=== PATIENT | female | born 1940 | race Caucasian/White ===

== ENCOUNTER 2022-04-29 14:06 | Emergency (ER) | payer MEDICARE, OTHER ==
[2022-04-29] MEDS ORDERED: Sodium Chloride 0.9% 10 ML Syringe FLUSH PRN (16:03)
[2022-04-29] MEDS ORDERED: Sodium Chloride 0.9% 1,000 ML IV SCH (16:15)
[2022-04-29 16:36] LABS: ESTIMATED GFR 48 (>60)
[2022-04-29] MEDS ORDERED: Ciprofloxacin 500 MG Tab PO ONE (17:33)
== END 2022-04-29 18:34 | disposition swing bed (61) ==
LOC: JP.ED 14:06
DX: N39.0 Urinary tract infection, site not specified (principal); E86.0 Dehydration; E78.00 Pure hypercholesterolemia, unspecified; K21.9 Gastro-esophageal reflux disease without esophagitis; I10 Essential (primary) hypertension; Z79.899 Other long term (current) drug therapy; Z79.01 Long term (current) use of anticoagulants
CPT/HCPCS: 36415; 70450; 80053; 81001; 85025; 87086; 96360; 96361; 99285; A9270; J7030

== ENCOUNTER 2022-05-01 09:48 | Inpatient (IN) | payer MEDICARE, OTHER ==
[2022-05-01] MEDS ORDERED: cefTRIAXone 1 GM in Sodium Chloride 0.9% 50 ML IV ONE (10:40)
[2022-05-01] MEDS ORDERED: Lactated Ringers 1,000 ML IV SCH (10:45)
[2022-05-01 11:31] LABS: ESTIMATED GFR 43 (>60)
[2022-05-01] MEDS ORDERED: Ondansetron 4 MG/2 ML SDV IV PRN (13:57)
[2022-05-01] MEDS ORDERED: LORazepam 2 MG/ML SDV IVPUSH PRN (13:57)
[2022-05-01] MEDS ORDERED: hydrALAZINE 20 MG/ML SDV IVPUSH PRN (14:10)
[2022-05-01] MEDS ORDERED: WARFARIN 4 MG PO SCH (14:15)
[2022-05-01] MEDS ORDERED: Sodium Chloride 0.9% 10 ML Syringe IV PRN (14:18)
[2022-05-01 15:28] LABS: CORONAVIRUS COVID-19 NAA NEGATIVE (NEGATIVE)
[2022-05-01] MEDS: DULOXETINE 30 MG PO SCH (16:45)
[2022-05-01] MEDS: amLODIPine 5 MG Tab (PTOM) PO SCH (16:45)
[2022-05-01] MEDS: Enoxaparin 40 MG/0.4 ML Syringe SUBCUT SCH (16:46)
[2022-05-01] MEDS: Potassium Chloride 20 MEQ Tab.ER PO SCH ×2 (16:50→20:26)
[2022-05-01] MEDS: ATORVASTATIN 40MG TAB (PTOM) PO SCH (20:23)
[2022-05-01] MEDS: DULOXETINE 60 MG PO SCH (20:24)
[2022-05-01] MEDS: BUPROPION 150 MG PO SCH (20:25)
[2022-05-01] MEDS ORDERED: Non-Formulary Medication 1 Each (Atorvastatin [Lipitor] 40 MG Tablet) PO SCH (21:00)
[2022-05-01] MEDS: LORazepam 2 MG/ML SDV IVPUSH PRN (22:35)
[2022-05-02 05:23] LABS: ESTIMATED GFR 53 (>60)
[2022-05-02] MEDS ORDERED: Pneumococcal Polyvalent-23 Vaccine 0.5 ML SDV IM ONE (09:00)
[2022-05-02] MEDS ORDERED: Non-Formulary Medication 1 Each (Esomeprazole [Nexium] 40 MG Cap) PO SCH (09:00)
[2022-05-02] MEDS: amLODIPine 5 MG Tab (PTOM) PO SCH (09:03)
[2022-05-02] MEDS: Potassium Chloride 20 MEQ Tab.ER PO SCH ×2 (09:04→20:18)
[2022-05-02] MEDS: BUPROPION 150 MG PO SCH ×2 (09:04→20:20)
[2022-05-02] MEDS: ESOMEPRAZOLE 40 MG PO SCH (09:04)
[2022-05-02] MEDS: DULOXETINE 30 MG PO SCH (09:04)
[2022-05-02] MEDS: cefTRIAXone 1 GM in Sodium Chloride 0.9% 50 ML IV SCH (12:44)
[2022-05-02] MEDS: WARFARIN 4 MG PO SCH ×3 (12:49→20:19)
[2022-05-02] MEDS ORDERED: Gadoteridol 279.3 MG/ML 15 ML SDV IV SCH (13:00)
[2022-05-02] MEDS: Enoxaparin 40 MG/0.4 ML Syringe SUBCUT SCH (14:06)
[2022-05-02] MEDS ORDERED: Sodium Chloride 0.9% 1,000 ML IV SCH (14:30)
[2022-05-02] MEDS: Acetaminophen 325 MG Tab PO PRN (17:45)
[2022-05-02] MEDS: LORazepam 2 MG/ML SDV IVPUSH PRN ×2 (18:25→22:31)
[2022-05-02] MEDS: ATORVASTATIN 40MG TAB (PTOM) PO SCH (20:18)
[2022-05-02] MEDS: DULOXETINE 60 MG PO SCH (20:19)
[2022-05-02] MEDS: Magnesium Hydroxide 400 MG/5 ML Susp 30 ML Cup PO PRN (20:27)
[2022-05-02] MEDS ORDERED: WARFARIN 4 MG PO SCH (21:00)
[2022-05-03] MEDS ORDERED: Sodium Chloride 0.9% 1,000 ML IV SCH (08:15)
[2022-05-03] MEDS: Potassium Chloride 20 MEQ Tab.ER PO SCH ×2 (08:49→20:04)
[2022-05-03] MEDS: ESOMEPRAZOLE 40 MG PO SCH (08:50)
[2022-05-03] MEDS: DULOXETINE 30 MG PO SCH (08:50)
[2022-05-03] MEDS: BUPROPION 150 MG PO SCH ×2 (08:51→20:07)
[2022-05-03] MEDS: amLODIPine 5 MG Tab (PTOM) PO SCH (08:52)
[2022-05-03] MEDS: cefTRIAXone 1 GM in Sodium Chloride 0.9% 50 ML IV SCH (11:34)
[2022-05-03] MEDS: LORazepam 2 MG/ML SDV IVPUSH PRN ×2 (14:01→22:33)
[2022-05-03] MEDS: ClonazePAM 0.5 MG Tab PO SCH ×4 (14:40→23:54)
[2022-05-03] MEDS ORDERED: Enoxaparin 30 MG/0.3 ML Syringe SUBCUT SCH (15:00)
[2022-05-03] MEDS ORDERED: Tamsulosin 0.4 MG Cap.ER PO ONE (16:00)
[2022-05-03] MEDS: Acetaminophen 325 MG Tab PO PRN (18:11)
[2022-05-03] MEDS: DULOXETINE 60 MG PO SCH (20:04)
[2022-05-03] MEDS: Melatonin 3 MG Tab PO SCH (20:04)
[2022-05-03] MEDS: WARFARIN 4 MG PO SCH (20:06)
[2022-05-03] MEDS: ATORVASTATIN 40MG TAB (PTOM) PO SCH (20:08)
[2022-05-03] MEDS: Sodium Chloride 0.9% 1,000 ML IV SCH (20:10)
[2022-05-04] MEDS: Sodium Chloride 0.9% 1,000 ML IV SCH (02:55)
[2022-05-04] MEDS: ESOMEPRAZOLE 40 MG PO SCH (08:33)
[2022-05-04] MEDS: DULOXETINE 30 MG PO SCH (08:33)
[2022-05-04] MEDS: BUPROPION 150 MG PO SCH (08:34)
[2022-05-04] MEDS: Potassium Chloride 20 MEQ Tab.ER PO SCH ×2 (08:34→20:40)
[2022-05-04] MEDS: amLODIPine 5 MG Tab (PTOM) PO SCH (08:35)
[2022-05-04] MEDS: Tamsulosin 0.4 MG Cap.ER PO SCH (08:39)
[2022-05-04] MEDS: Magnesium Hydroxide 400 MG/5 ML Susp 30 ML Cup PO PRN (08:54)
[2022-05-04] MEDS: cefTRIAXone 1 GM in Sodium Chloride 0.9% 50 ML IV SCH (11:08)
[2022-05-04] MEDS ORDERED: Sodium Chloride 0.9% 1,000 ML IV SCH (12:00)
[2022-05-04] MEDS: Warfarin 2.5 MG Tab PO SCH (13:41)
[2022-05-04] MEDS: LORazepam 2 MG/ML SDV IVPUSH PRN ×2 (14:35→20:47)
[2022-05-04] MEDS: atorvaSTATin 20 MG Tab PO SCH (20:40)
[2022-05-04] MEDS: Melatonin 3 MG Tab PO SCH (20:40)
[2022-05-04] MEDS: buPROPion 150 MG Tab.ER PO SCH (20:40)
[2022-05-04] MEDS: DULoxetine 30 MG Cap PO SCH (20:41)
[2022-05-05] MEDS: LORazepam 2 MG/ML SDV IVPUSH PRN (01:04)
[2022-05-05] MEDS: ESOMEPRAZOLE 40 MG PO SCH (08:47)
[2022-05-05] MEDS ORDERED: Bisacodyl 5 MG Tab PO ONE (09:02)
[2022-05-05] MEDS: buPROPion 150 MG Tab.ER PO SCH ×2 (10:44→20:29)
[2022-05-05] MEDS: amLODIPine 5 MG Tab PO SCH (10:44)
[2022-05-05] MEDS: Potassium Chloride 20 MEQ Tab.ER PO SCH ×2 (10:44→20:29)
[2022-05-05] MEDS: DULoxetine 30 MG Cap PO SCH ×2 (10:45→20:30)
[2022-05-05] MEDS: Tamsulosin 0.4 MG Cap.ER PO SCH (10:45)
[2022-05-05] MEDS: Magnesium Hydroxide 400 MG/5 ML Susp 30 ML Cup PO PRN (10:47)
[2022-05-05] MEDS: cefTRIAXone 1 GM in Sodium Chloride 0.9% 50 ML IV SCH (11:39)
[2022-05-05] MEDS ORDERED: Bisacodyl 10 MG Supp RECTAL ONE (12:00)
[2022-05-05] MEDS: LORazepam 0.5 MG Tab PO PRN ×3 (12:57→22:24)
[2022-05-05] MEDS: Acetaminophen 325 MG Tab PO PRN (12:58)
[2022-05-05] MEDS: Warfarin 2.5 MG Tab PO SCH (13:24)
[2022-05-05] MEDS: atorvaSTATin 20 MG Tab PO SCH (20:29)
[2022-05-05] MEDS: Melatonin 3 MG Tab PO SCH (20:30)
[2022-05-06] MEDS: ESOMEPRAZOLE 40 MG PO SCH (08:43)
[2022-05-06] MEDS ORDERED: Amoxicillin/Clavulanate K 875-125 MG Tab PO SCH (09:00)
[2022-05-06] MEDS: buPROPion 150 MG Tab.ER PO SCH (09:37)
[2022-05-06] MEDS: Tamsulosin 0.4 MG Cap.ER PO SCH (09:37)
[2022-05-06] MEDS: Potassium Chloride 20 MEQ Tab.ER PO SCH (09:37)
[2022-05-06] MEDS: amLODIPine 5 MG Tab PO SCH (09:37)
[2022-05-06] MEDS: DULoxetine 30 MG Cap PO SCH (09:37)
[2022-05-06] MEDS: Acetaminophen 325 MG Tab PO PRN (12:32)
[2022-05-06] MEDS: Warfarin 2.5 MG Tab PO SCH (12:32)
== END 2022-05-06 13:00 | DRG 690 ==
LOC: JP.ED 09:48 → JP.MS 13:25 → OBSVTOIN 15:17
PROVIDERS: ADMIT Hospitalist; ATTEND Internal Medicine
DX: N13.6 Pyonephrosis (principal); N18.30 Chronic kidney disease, stage 3 unspecified; N18.31 Chronic kidney disease, stage 3a; I35.0 Nonrheumatic aortic (valve) stenosis; R53.1 Weakness; E78.00 Pure hypercholesterolemia, unspecified; K21.9 Gastro-esophageal reflux disease without esophagitis; E78.5 Hyperlipidemia, unspecified; G62.9 Polyneuropathy, unspecified; F32.A Depression, unspecified; Z79.01 Long term (current) use of anticoagulants; Z20.822 Contact with and (suspected) exposure to COVID-19; Z79.899 Other long term (current) drug therapy; Z90.710 Acquired absence of both cervix and uterus; Z86.19 Personal history of other infectious and parasitic diseases; F03.90 Unspecified dementia, unspecified severity, without behavioral disturbance, psychotic disturbance, mood disturbance, and anxiety; N30.00 Acute cystitis without hematuria; I12.9 Hypertensive chronic kidney disease with stage 1 through stage 4 chronic kidney disease, or unspecified chronic kidney disease; R79.1 Abnormal coagulation profile; R10.32 Left lower quadrant pain; Z86.718 Personal history of other venous thrombosis and embolism
CPT/HCPCS: 0241U; 36415; 70450; 70553; 74176; 80048; 80053; 81001; 83605; 84145; 84443; 85025; 85027; 85610; 86140; 87040; 96361; 96365; 97110; 97140; 97162; 97165; 97530; 97535; 99283; 99285; A9270-GY; A9579; C8929; J0696; J1650; J2060; J2405; J7030; J7120; U0002

== ENCOUNTER 2022-05-07 15:05 | Emergency (ER) | payer MEDICARE, OTHER ==
[2022-05-07] MEDS ORDERED: Sodium Chloride 0.9% 10 ML Syringe FLUSH PRN (15:39)
[2022-05-07] MEDS ORDERED: Lactated Ringers 1,000 ML IV SCH (15:45)
[2022-05-07 16:22] LABS: ESTIMATED GFR 51 mL/min (>60)
== END 2022-05-07 18:10 ==
LOC: JP.ED 15:05
DX: N13.1 Hydronephrosis with ureteral stricture, not elsewhere classified (principal); N20.1 Calculus of ureter; E78.00 Pure hypercholesterolemia, unspecified; I10 Essential (primary) hypertension; K21.9 Gastro-esophageal reflux disease without esophagitis; Z79.899 Other long term (current) drug therapy
CPT/HCPCS: 36415; 74176; 80053; 81001; 83605; 83690; 85025; 85610; 96360; 99282; 99285; J3490; J7120

== ENCOUNTER 2022-05-31 08:22 | Emergency (ER) | payer MEDICARE, OTHER ==
[2022-05-31 09:38] LABS: ESTIMATED GFR 51 mL/min (>60)
[2022-05-31] MEDS ORDERED: Aluminum Hydroxide/Magnesium Hydroxide/Simethicone Susp 30 ML Cup PO ONE (09:57)
== END 2022-05-31 10:44 | disposition home or self-care (01) ==
LOC: JP.ED 08:22
DX: R41.82 Altered mental status, unspecified (principal); R12 Heartburn; I10 Essential (primary) hypertension; E78.00 Pure hypercholesterolemia, unspecified; K21.9 Gastro-esophageal reflux disease without esophagitis; Z79.899 Other long term (current) drug therapy
CPT/HCPCS: 36415; 74176; 80053; 81001; 85025; 85610; 99285; A9270

== ENCOUNTER 2022-06-24 06:02 | Emergency (ER) | payer MEDICARE, OTHER ==
[2022-06-24] MEDS ORDERED: Sodium Chloride 0.9% 10 ML Syringe FLUSH PRN (06:04)
[2022-06-24 06:34] LABS: ESTIMATED GFR 42 mL/min (>60)
== END 2022-06-24 08:05 | disposition home or self-care (01) ==
LOC: JP.ED 06:02
DX: K59.01 Slow transit constipation (principal); I10 Essential (primary) hypertension; Z79.899 Other long term (current) drug therapy; Z79.01 Long term (current) use of anticoagulants; Z90.710 Acquired absence of both cervix and uterus; Z20.822 Contact with and (suspected) exposure to COVID-19
CPT/HCPCS: 36415; 74019; 80053; 81001; 83605; 85025; 85610; 85730; 86140; 99284; J3490; U0002

== ENCOUNTER 2022-06-25 20:49 | Inpatient (IN) | payer MEDICARE, OTHER ==
[2022-06-25 21:32] LABS: ESTIMATED GFR 38 mL/min (>60)
[2022-06-25] MEDS ORDERED: Sodium Chloride 0.9% 1,000 ML IV SCH (22:15)
[2022-06-25] MEDS ORDERED: Acetaminophen 325 MG Tab PO PRN (23:27)
[2022-06-25] MEDS ORDERED: Ondansetron 4 MG/2 ML SDV IV PRN (23:27)
[2022-06-25] MEDS ORDERED: Polyethylene Glycol 3350 Powder 17 GM Packet PO PRN (23:27)
[2022-06-25] MEDS ORDERED: Sodium Chloride 0.9% 10 ML Syringe FLUSH PRN (23:27)
[2022-06-25] MEDS ORDERED: risperiDONE 0.5 MG Tab PO SCH (23:27)
[2022-06-26] MEDS: risperiDONE 0.5 MG Tab PO SCH ×2 (00:07→21:31)
[2022-06-26] MEDS: Melatonin 3 MG Tab PO SCH ×2 (00:07→21:31)
[2022-06-26] MEDS: Divalproex Sodium Delayed-Release 250 MG Tab.CR PO SCH ×3 (00:07→18:41)
[2022-06-26] MEDS: Pantoprazole 40 MG Tab.CR PO SCH (10:31)
[2022-06-26] MEDS: amLODIPine 5 MG Tab PO SCH (10:31)
[2022-06-26] MEDS: DULoxetine 30 MG Cap PO SCH ×2 (10:31→21:30)
[2022-06-26] MEDS: buPROPion 150 MG Tab.ER PO SCH ×2 (10:33→21:32)
[2022-06-26] MEDS: Haloperidol Lactate 5 MG/ML SDV IVPUSH PRN (14:13)
[2022-06-26] MEDS: Warfarin 2.5 MG Tab PO SCH (15:02)
[2022-06-26] MEDS: atorvaSTATin 20 MG Tab PO SCH (21:31)
[2022-06-27] MEDS: Divalproex Sodium Delayed-Release 250 MG Tab.CR PO SCH ×2 (07:57→17:24)
[2022-06-27] MEDS: Pantoprazole 40 MG Tab.CR PO SCH (07:57)
[2022-06-27] MEDS: amLODIPine 5 MG Tab PO SCH (08:19)
[2022-06-27] MEDS: buPROPion 150 MG Tab.ER PO SCH ×2 (08:19→20:29)
[2022-06-27] MEDS: DULoxetine 30 MG Cap PO SCH ×2 (08:19→20:29)
[2022-06-27] MEDS: Haloperidol Lactate 5 MG/ML SDV IVPUSH PRN ×2 (09:35→22:16)
[2022-06-27] MEDS: Warfarin 2.5 MG Tab PO SCH (15:56)
[2022-06-27] MEDS: atorvaSTATin 20 MG Tab PO SCH (20:29)
[2022-06-27] MEDS: risperiDONE 0.5 MG Tab PO SCH (20:29)
[2022-06-27] MEDS: Melatonin 3 MG Tab PO SCH (20:30)
[2022-06-28] MEDS: Haloperidol Lactate 5 MG/ML SDV IVPUSH PRN (02:19)
[2022-06-28] MEDS ORDERED: risperiDONE 0.5 MG Tab PO SCH (09:00)
[2022-06-28] MEDS: Divalproex Sodium Delayed-Release 250 MG Tab.CR PO SCH (09:06)
[2022-06-28] MEDS: DULoxetine 30 MG Cap PO SCH (09:06)
[2022-06-28] MEDS: Pantoprazole 40 MG Tab.CR PO SCH (09:06)
[2022-06-28] MEDS: amLODIPine 5 MG Tab PO SCH (09:06)
[2022-06-28] MEDS: buPROPion 150 MG Tab.ER PO SCH (09:08)
[2022-06-28] MEDS ORDERED: Haloperidol 1 MG Tab PO PRN (09:26)
[2022-06-29] MEDS ORDERED: Warfarin 2.5 MG Tab PO SCH (13:00)
== END 2022-06-28 16:30 | DRG 57 ==
LOC: JP.ED 20:49 → JP.MS 22:43
PROVIDERS: ADMIT Hospitalist; ATTEND Internal Medicine
DX: G30.1 Alzheimer's disease with late onset (principal); F02.81 Dementia in other diseases classified elsewhere, unspecified severity, with behavioral disturbance; R53.1 Weakness; R44.0 Auditory hallucinations; R41.0 Disorientation, unspecified; R45.1 Restlessness and agitation; R44.1 Visual hallucinations; I10 Essential (primary) hypertension; N18.31 Chronic kidney disease, stage 3a; F03.90 Unspecified dementia, unspecified severity, without behavioral disturbance, psychotic disturbance, mood disturbance, and anxiety; Z20.822 Contact with and (suspected) exposure to COVID-19; G62.9 Polyneuropathy, unspecified; E78.00 Pure hypercholesterolemia, unspecified; K59.09 Other constipation; H54.7 Unspecified visual loss; K21.9 Gastro-esophageal reflux disease without esophagitis; F32.A Depression, unspecified; I12.9 Hypertensive chronic kidney disease with stage 1 through stage 4 chronic kidney disease, or unspecified chronic kidney disease; F41.9 Anxiety disorder, unspecified; Z86.16 Personal history of COVID-19; Z86.718 Personal history of other venous thrombosis and embolism; Z79.01 Long term (current) use of anticoagulants; Z90.710 Acquired absence of both cervix and uterus; Z87.440 Personal history of urinary (tract) infections; Z79.899 Other long term (current) drug therapy
CPT/HCPCS: 36415; 70450; 80053; 85025; 85610; 86140; 99285; J7030; U0002; 80048; 81001; 87086; 97161-GP; 97530-GP; A9270-GY; J1630; J2405

== ENCOUNTER 2022-09-21 12:11 | Emergency (ER) | payer MEDICARE, OTHER, MEDICAID ==
[2022-09-21] MEDS ORDERED: Mineral Oil 133 ML BOTTLE RECTAL ONE (12:47)
== END 2022-09-21 14:05 | disposition home or self-care (01) ==
LOC: JP.ED 12:11 → EEVIPCON 12:11 → JP.ED 14:05
DX: K59.01 Slow transit constipation (principal); E78.00 Pure hypercholesterolemia, unspecified; I10 Essential (primary) hypertension; Z79.899 Other long term (current) drug therapy; Z90.710 Acquired absence of both cervix and uterus
CPT/HCPCS: 71046; 99284; A9270

== ENCOUNTER 2023-04-29 22:32 | Emergency (ER) | payer MEDICARE, MEDICAID ==
[2023-04-29] MEDS ORDERED: Aspirin 81 MG Tab.Chew PO ONE (23:27)
[2023-04-29 23:34] LABS: BASOPHILS ABSOLUTE AUTO 0.05 K/uL (0.00-0.10); BASOPHILS PERCENT AUTO 0.9 % (0.1-1.3); EOSINOPHILS ABSOLUTE AUTO 0.07 K/uL (0.00-0.40); EOSINOPHILS PERCENT AUTO 1.3 % (0.0-5.4); HEMATOCRIT 37.2 % (34.3-46.0); HEMOGLOBIN 13.1 g/dL (11.2-15.5); IMMATURE GRAN PERCENT AUTO 0.2 % (0.0-0.7); LYMPHOCYTES ABSOLUTE AUTO 1.42 K/uL (0.8-3.3); LYMPHOCYTES PERCENT AUTO 25.5 % (11.4-47.7); MEAN CORPUSCULAR HEMOGLOBIN 32.5 pg (31.6-35.5); MEAN CORPUSCULAR HGB CONC 35.2 g/dL (31.6-35.5); MEAN CORPUSCULAR VOLUME 92.3 fL (81.4-99.0); MONOCYTES ABSOLUTE AUTO 0.39 K/uL (0.20-0.90); NEUTROPHILS ABSOLUTE AUTO 3.63 K/uL (1.0-7.6); NEUTROPHILS PERCENT AUTO 65.1 % (40.0-78.1); PLATELET COUNT,PLT 138 K/uL (130-375); RED BLOOD CELL COUNT 4.03 M/uL (3.77-5.24); WHITE BLOOD CELL COUNT,WBC 5.6 K/uL (3.2-11.0)
[2023-04-29 23:39] LABS: PROTHROMBIN TIME 44.3 sec (9.2-10.6)
[2023-04-29 23:41] LABS: INR 4.8
[2023-04-29 23:44] LABS: ANION GAP 7.4 mmol/L (5.0-14.0); CALCIUM 9.3 mg/dL (8.5-10.1); CREATININE 1.2 mg/dL (0.6-1.0); EST CRCL DRUG DOSING (CG) 30.41 mL/min; POTASSIUM,K 4.7 mmol/L (3.6-5.2); TROPONIN I HIGH SENSITIVITY 6.1 pg/mL (<=60.3)
[2023-04-29 23:45] LABS: IMMATURE GRAN ABSOLUTE AUTO 0.01 K/uL (0.00-0.23)
== END 2023-04-30 00:30 | disposition home or self-care (01) ==
LOC: JP.ED 22:32
DX: R07.9 Chest pain, unspecified (principal); I10 Essential (primary) hypertension; Z79.01 Long term (current) use of anticoagulants; Z86.718 Personal history of other venous thrombosis and embolism; E78.00 Pure hypercholesterolemia, unspecified; Z79.899 Other long term (current) drug therapy; Z86.16 Personal history of COVID-19
CPT/HCPCS: 36415; 71045; 71045-26; 80048; 84484; 85025; 85610; 93005; 99285

== ENCOUNTER 2023-07-08 20:43 | Emergency (ER) | payer MEDICARE, MEDICAID | END 2023-07-09 00:05 | disposition home or self-care (01) | LOC: JP.ED 20:43 | DX: K59.01 Slow transit constipation (principal); K21.9 Gastro-esophageal reflux disease without esophagitis; E78.00 Pure hypercholesterolemia, unspecified; I10 Essential (primary) hypertension; Z79.01 Long term (current) use of anticoagulants; Z86.16 Personal history of COVID-19; Z79.899 Other long term (current) drug therapy | CPT/HCPCS: 74019; 74019-26; 99283; 99284 ==